=== PATIENT | female | born 1985 ===

== ENCOUNTER 2022-01-22 11:15 | Inpatient (IN) | payer OTHER ==
[~2022-01-22] VITALS: Ht 162.6 cm; Wt 72.6 kg
[2022-01-29] MEDS ORDERED: PERCOCET 5-3251 EACH PO (16:11)
== END 2022-01-29 22:58 | disposition home or self-care (01) | DRG 330 ==
LOC: O/R 01-27 09:00 → SURH 01-27 09:00
PROVIDERS: Obstetrics & Gynecology Gynecology; ADMIT Surgery; ATTEND Surgery
PROC: 0DNN4ZZ Release Sigmoid Colon, Percutaneous Endoscopic Approach (ICD-10-PCS; 2022-01-27)
PROC: 0TN74ZZ Release Left Ureter, Percutaneous Endoscopic Approach (ICD-10-PCS; 2022-01-27)
PROC: 0TN64ZZ Release Right Ureter, Percutaneous Endoscopic Approach (ICD-10-PCS; 2022-01-27)
PROC: 0UT94ZZ Resection of Uterus, Percutaneous Endoscopic Approach (ICD-10-PCS; 2022-01-27)
PROC: 0UT74ZZ Resection of Bilateral Fallopian Tubes, Percutaneous Endoscopic Approach (ICD-10-PCS; 2022-01-27)
PROC: 0UT24ZZ Resection of Bilateral Ovaries, Percutaneous Endoscopic Approach (ICD-10-PCS; 2022-01-27)
PROC: 0DJD8ZZ Inspection of Lower Intestinal Tract, Via Natural or Artificial Opening Endoscopic (ICD-10-PCS; 2022-01-27)
PROC: 0DTN4ZZ Resection of Sigmoid Colon, Percutaneous Endoscopic Approach (ICD-10-PCS; principal; 2022-01-27 10:30)
PROC: 0DBP4ZZ Excision of Rectum, Percutaneous Endoscopic Approach (ICD-10-PCS; 2022-01-27 10:30)
DX: N80.50 Endometriosis of intestine, unspecified (principal); K56.51 Intestinal adhesions [bands], with partial obstruction; N80.519 Endometriosis of the rectum, unspecified depth; N80.203 Endometriosis of bilateral fallopian tubes, unspecified depth; N80.103 Endometriosis of bilateral ovaries, unspecified depth; D12.8 Benign neoplasm of rectum; D25.1 Intramural leiomyoma of uterus; D25.2 Subserosal leiomyoma of uterus; N13.5 Crossing vessel and stricture of ureter without hydronephrosis; Z20.822 Contact with and (suspected) exposure to COVID-19; N94.6 Dysmenorrhea, unspecified; N72 Inflammatory disease of cervix uteri